=== PATIENT | female | born 1980 | race Hispanic/Latino ===

== ENCOUNTER 2017-01-13 13:38 | Emergency (ER) | payer SELFPAY ==
[~2017-01-13] VITALS: Ht 162.6 cm; Wt 66.0 kg
[~2017-01-13 13:38] MED LIST: COLACE100 MG PO; CONCEPT OB PO; INTEGRA F PO; PRENATAL1 TAB OR; PROMETRIUM200 MG PO; TUBERSOL5 MG/0.1 M ID
[2017-01-13 15:04] LABS: HEMATOCRIT 34.2 % (37.0-47.0); IMMATURE GRANULOCYTES 0.3 % (0.0-1.0); MEAN CELL VOLUME 94.2 fL CALC (80.0-100.0); MEAN CORPUSCULAR HGB 30.3 pG CALC (26.0-32.0); MEAN CORPUSCULAR HGB CONC 32.2 g/L CALC (32.0-36.0); NEUT# 6.44 thou/uL (2.00-7.15); RED BLOOD COUNT 3.63 mill/uL (4.20-5.60)
[2017-01-13 15:14] LABS: ALBUMIN 3.7 g/dL (3.2-5.0); ALKALINE PHOSPHATASE 64 u/l (38-126); ANION GAP 13 (6-22 (CALC)); BILIRUBIN, TOTAL 0.7 mg/dL (0.0-1.4); BUN 17 mg/dL (7-17); BUN/CREATININE RATIO 30 (12-20 (CALC)); CALCIUM 8.7 mg/dL (8.4-10.2); CARBON DIOXIDE 25 mmol/l (22-30); CHLORIDE 105 mmol/l (95-108); CREATININE 0.6 mg/dL (0.5-1.0); GFR > 60 ML/MIN (>=60 (CALC)); GFR FOR AFR.AMER. > 60 ML/MIN (>=60 (CALC)); GLUCOSE 88 mg/dL (65-105); POTASSIUM 3.9 mmol/l (3.5-5.1); SGOT/AST 40 u/l (14-36); SGPT/ALT 36 u/l (9-52); SODIUM 139 mmol/l (137-146)
[2017-01-13] MEDS ORDERED: ATIVAN0.5 MG PO (15:28)
[2017-01-13 15:55] VITALS: BP 81/43
== END 2017-01-13 15:57 | disposition home or self-care (01) | DRG 392 ==
LOC: ED 13:38
PROVIDERS: Emergency Medicine
DX: R10.13 Epigastric pain (principal); F32.9 Major depressive disorder, single episode, unspecified; F41.9 Anxiety disorder, unspecified

== ENCOUNTER 2020-01-03 | Emergency (ER) | payer SELFPAY ==
[~2020-01-03] MED LIST changes: +ATIVAN0.5 MG PO
[2020-01-03 16:18] LABS: HEMATOCRIT 34.5 % (37.0-47.0); HEMOGLOBIN 11.2 g/dl (12.0-16.0); IMMATURE GRANULOCYTES 0.2 % (0.0-5.0); MEAN CELL VOLUME 90.1 fL CALC (80.0-100.0); MEAN CORPUSCULAR HGB 29.2 pG CALC (26.0-32.0); MEAN CORPUSCULAR HGB CONC 32.5 g/dL CAL (32.0-36.0); NEUT# 4.98 thou/uL (2.00-7.15); RED BLOOD COUNT 3.83 mill/uL (4.20-5.60); RED CELL DISTRI WIDTH 12.8 % (11.5-15.5)
[2020-01-03 16:31] LABS: ALBUMIN 4.1 g/dL (3.2-5.0); ALKALINE PHOSPHATASE 82 u/l (38-126); ANION GAP 11 (6-22 (CALC)); BUN 12 mg/dL (7-17); BUN/CREATININE RATIO 20 (12-20 (CALC)); CARBON DIOXIDE 24 mmol/l (22-30); CHLORIDE 105 mmol/l (95-108); CREATININE 0.6 mg/dL (0.5-1.0); GFR > 60 ML/MIN (>=60 (CALC)); GFR FOR AFR.AMER. > 60 ML/MIN (>=60 (CALC)); POTASSIUM 3.6 mmol/l (3.5-5.1); SGOT/AST 31 u/l (14-36); SODIUM 137 mmol/l (137-146); TOTAL PROTEIN 7.7 g/dL (6.3-8.2)
[2020-01-03 16:42] LABS: BILIRUBIN, TOTAL 0.4 mg/dL (0.0-1.4)
== END 2020-01-03 20:23 | disposition home or self-care (01) | DRG 313 ==
PROVIDERS: Family Medicine
DX: R07.9 Chest pain, unspecified (principal)

== ENCOUNTER 2022-08-18 15:17 | Emergency (ER) | payer SELFPAY ==
[~2022-08-18] VITALS: Ht 162.6 cm; Wt 63.6 kg
[2022-08-18 15:23] VITALS: BP 122/62
[2022-08-18 15:30] VITALS: BP 109/55
[2022-08-18 15:55] LABS: HEMATOCRIT 35.9 % (37.0-47.0); HEMOGLOBIN 11.4 g/dl (12.0-16.0); IMMATURE GRANULOCYTES 0.3 % (0.0-5.0); MEAN CORPUSCULAR HGB 30.8 pG CALC (26.0-32.0); MEAN CORPUSCULAR HGB CONC 31.8 g/dL CAL (32.0-36.0); NEUT# 11.77 thou/uL (2.00-7.15); RED BLOOD COUNT 3.7 mill/uL (4.20-5.60); RED CELL DISTRI WIDTH 13.2 % (11.5-15.5)
[2022-08-18 16:10] LABS: ALBUMIN 3.6 g/dL (3.2-5.0); ANION GAP 14 (6-22 (CALC)); BUN 18 mg/dL (7-17); BUN/CREATININE RATIO 25 (12-20 (CALC)); CARBON DIOXIDE 22 mmol/l (22-30); CHLORIDE 104 mmol/l (95-108); CREATININE 0.7 mg/dL (0.5-1.0); GFR FOR AFR.AMER. > 60 ML/MIN (>=60 (CALC)); GFR OTHER RACES > 60 ML/MIN (>=60 (CALC)); POTASSIUM 4.3 mmol/l (3.5-5.1); SGOT/AST 53 u/l (14-36); SODIUM 136 mmol/l (137-146)
[2022-08-18 16:16] LABS: BILIRUBIN, TOTAL 0.6 mg/dL (0.0-1.4)
[2022-08-18 16:17] LABS: ALKALINE PHOSPHATASE 160 u/l (38-126)
[2022-08-18] MEDS ORDERED: CEPHALEXIN500 MG PO (17:40)
[2022-08-18] MEDS ORDERED: ZOFRAN4 MG/TAB PO (17:40)
[2022-08-18] MEDS ORDERED: CLINDAMYCIN HC150 MG PO (17:40)
[2022-08-18 17:48] VITALS: BP 109/55
== END 2022-08-18 19:26 | disposition home or self-care (01) | DRG 776 ==
LOC: ED 15:17
PROVIDERS: Family Medicine
DX: O91.23 Nonpurulent mastitis associated with lactation (principal); B95.1 Streptococcus, group B, as the cause of diseases classified elsewhere; R50.9 Fever, unspecified